=== PATIENT | female | born 1980 | race Two or more races ===

== ENCOUNTER 2024-10-28 11:50 | Emergency (ER) | payer OTHER, SELFPAY ==
[~2024-10-28] VITALS: Ht 160 cm; Wt 119.3 kg
--- NOTE | 2024-10-28 13:03 | ED.PDOC ---
History of Present Illness HPI Comments 44 year old female presents to the ED with chief complaint of HTN and medication refill. Patient reports that she was seeing Dr. Enriquez today when she was told her BP was noted to be 202 systolically. Patient relays that she was advised to come to the ED for further evaluation of her blood pressure. Patient states she normally takes 50mg of Hydrochlorothiazide every day, however, she has been out of her prescription till next week when she has her appointment with her PCP. Patient denies any chest pain, SOB, dizziness, blurred vision, headache, or N/V. Chief Complaint: High Blood Pressure Time Seen by MD: 12:59 Reviewed Notes: Nurses Notes, Medications, Allergies Allergies: Coded Allergies: NO KNOWN ALLERGIES (Unverified , 10/28/24) Information Source: Patient Mode of Arrival: Ambulatory Severity: Mild Timing: Days Duration: Since onset Prehospital treatment: None Medication Refill: Ran out of Medication Past Medical History PAST MEDICAL HISTORY: HTN Surgical History: Denies all surgeries MANAGER TRUST History: Denies all MANAGER TRUST Hx Family History Family History: Reviewed,noncontributory to illness Social History Smoker: Non-Smoker Alcohol: Denies ETOH Use Drugs: Denies Drug Use Lives In: Home Constitutional: denies: chills, diaphoresis, fatigue, fever, malaise, sweats, weakness, others EENTM: denies: blurred vision, double vision, ear bleeding, ear discharge, ear drainage, ear pain, ear ringing, eye pain, eye redness, hearing loss, mouth pain, mouth swelling, nasal discharge, nose bleeding, nose congestion, nose pain, photophobia, tearing, throat pain, throat swelling, voice changes, others Respiratory: denies: cough, hemoptysis, orthopnea, SOB at rest, shortness of breath, SOB with excertion, stridor, wheezing, others Cardiovascular: denies: chest pain, dizzy spells, diaphoresis, Dyspnea on exertion, edema, irregular heart beat, left arm pain, lightheadedness, palpitations, PND, syncope, others Gastrointestinal: denies: abdomen distended, abdominal pain, blood streaked bowels, constipated, diarrhea, dysphagia, difficulty swallowing, hematemesis, melena, nausea, poor appetite, poor fluid intake, rectal bleeding, rectal pain, vomiting, others Genitourinary: denies: abnormal vagina bleeding, burning, dyspareunia, dysuria, flank pain, frequency, hematuria, incontinence, pain, , vagina discharge, urgency, others Neurological: denies: dizziness, fainting, headache, left sided numbness, left sided weakness, numbness, paresthesia, pre-existing deficit, right sided numbness, right sided weakness, seizure, speech problems, tingling, tremors, weakness, others Musculoskeletal: denies: back pain, gout, joint pain, joint swelling, muscle pain, muscle stiffness, neck pain, others Integumetry: denies: bruises, change in color, change in hair/nails, dryness, laceration, lesions, lumps, rash, wounds, others Allergic/Immunocompromised: denies: Difficulty Healing, Frequent Infections, Hives, Itching, others Hematologic/Lymphatic: denies: anemia, blood clots, easy bleeding, easy bruising, swollen glands, others Endocrine: denies: excessive hunger, excessive sweating, excessive thirst, excessive urination, flushing, intolerance to cold, intolerance to heat, unexplained weight gain, unexplained weight loss, others Psychiatric: denies: anxiety, bipolar disorder, depression, hopeless, panic disorder, schizophrenia, sleepless, suicidal, others All Other Systems: Reviewed and Negative Physical Exam General Appearance: Moderate Distress, Normal HEENT: Normal ENT Inspection, PERRL/EOMI Neck: Full Range of Motion, Non-Tender, Normal, Normal Inspection Respiratory: Chest Non-Tender, Lungs Clear, No Accessory Muscle Use, No Respira tory Distress, Normal Breath Sounds Cardiovascular: No Edema, No JVD, No Murmur, No Gallop, Normal Peripheral Pulses, Regular Rate/Rhythm Breast Exam: Deferred Gastrointestinal: No Organomegaly, Non Tender, No Pulsatile Mass, Normal Bowel Sounds, Soft Genitalia: Deferred Pelvic: Deferred Rectal: Deferred Extremities: No calf tenderness, Normal capillary refill, Normal inspection, Normal range of motion, Non-tender, No pedal edema Musculoskeletal : Apperance: Normal Neurologic: Alert, newspaper inserter II-XII nml as Tested, No Motor Deficits, Normal Affect, Normal Mood, No Sensory Deficits Cerebellar Function: Normal Reflexes: Normal Skin: Dry, Normal Color, Warm Peripheral Pulses: 3+ Radial (R), 3+ Radial (L) Lymphatic: No Adenopathy Was a procedure done? Was a procedure done?: No Differential Dx Considerations may include: Hypertension X-Ray, Labs, Meds, VS Vital Signs Date Time Temp Pulse Resp B/P (MAP) Pulse Ox O2 Delivery O2 Flow Rate FiO2 10/28/24 12:17 98.5 94 18 165/109 (127) 98 98.5 Patient alert. No sign of any distress. Vitals stable. Answering all questions. Denies any symptoms. Ambulating without difficulty. No shortness a breath. No chest pain. Was given clonidine. Was given prescription of hydrochlorothiazide. States that she is feeling much better. Explained to the patient. Was told to follow up with her primary care physician. Was told to come back if there is any problem. Time of 1ST Reevaluation: 13:59 Reevaluation 1ST: Improved Patient Education/Counseling: Diagnosis, Treatment Family Education/Counseling: No Family Present Additional Information Previous visit documents reviewed: None The following tests were ordered, and results were reviewed by me: UA Additional Information was gathered from interviewing the following independent historians: None I reviewed and agreed with the following test results read by other providers: None I discussed treatment and results with medical personnel and: Patient Departure 1 Departure Time of Disposition: 13:40 Impression: Primary Impression: Hypertension Qualified Codes: I10 - Essential (primary) hypertension Disposition: 01 HOME / SELF CARE / HOMELESS Condition: Good e-Prescriptions Hydrochlorothiazide (Hydrochlorothiazide) 25 Mg Tab 1 TAB PO DAILY for 20 Days, #20 TAB 5 Refills Prov: IRENE CENTENO MD 10/28/24 Discharged With: Self Critical Care Note Critical Care Time?: No Stability Stability form required: No Heart Score Heart Score: Heart Score Response (Comments) Value History N/A 0 EKG N/A 0 Age N/A 0 Risk Factors N/A 0 Troponin N/A 0 Total 0 I personally scribed for IRENE CENTENO MD ([email or web address]) on 10/28/24 at 13:03. Electronically submitted by Benitez Frausto ([email or web address]). I personally scribed for IRENE CENTENO MD ([email or web address]) on 10/28/24 at 13:35. Electronically submitted by Benitez Frausto ([email or web address]). IRENE CENTENO MD Oct 28, 2024 13:03
[2024-10-28] MEDS ORDERED: HYDR25TA4 PO (13:42)
[2024-10-28] MEDS: cloNIDine HCL 0.1 MG TAB PO ONE (16:39)
[2024-10-28 16:40] VITALS: BP 146/59; PULSE 79; RESP 16; TEMP 98.2; O2SAT 99
== END 2024-10-28 16:43 | disposition home or self-care (01) ==
LOC: ER 11:50
DX: I10 Essential (primary) hypertension (principal); Z76.0 Encounter for issue of repeat prescription; Z79.899 Other long term (current) drug therapy